=== PATIENT | female | born 1980 | race Asian ===

== ENCOUNTER → 2017-01-09 | Outpatient (CLI) | payer OTHER | END | disposition disaster alternative care site (69) | LOC: GLAB 12:00 | DX: Z02.89 Encounter for other administrative examinations (principal) ==

== ENCOUNTER → 2017-01-13 | Outpatient (CLI) | payer OTHER | END | disposition disaster alternative care site (69) | LOC: GRAD 15:47 | DX: Z02.89 Encounter for other administrative examinations (principal); R76.11 Nonspecific reaction to tuberculin skin test without active tuberculosis ==